=== PATIENT | female | born 1985 | race American Indian/Alaskan Native ===

== ENCOUNTER 2020-02-18 18:09 | Emergency (ER) | payer OTHER ==
[2020-02-18] MEDS ORDERED: HYDROmorphone 1 MG/1 ML INJ IV ONE ×2 (18:34→21:15)
[2020-02-18] MEDS ORDERED: SODIUM CHLORIDE 0.9% 500 ML 500 ML IV ONE (18:34)
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
[2020-02-18 19:21] LABS: Hematocrit 38.4 % (30.3-42.9); Hemoglobin 12.9 gm/dl (10.1-14.3); Mean Corpuscular HGB Conc 34 % (30-34); Mean Corpuscular Volume 89 fl (79-97); Platelet Count 435 K/mm3 (140-440); Red Cell Distribution Width 13.7 % (13.2-15.2)
[2020-02-18 19:36] LABS: Alanine Aminotransferase 16 units/L (7-56); BUN/Creatinine Ratio 22; Blood Urea Nitrogen 13 mg/dL (7-17); Calcium 9.3 mg/dL (8.4-10.2); Hemolysis Index 2; INR 1.11 (0.87-1.13)
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
[2020-02-18] MEDS ORDERED: methylPREDNISolone Sod Succinate 125 MG/2 ML INJ IV ONE (21:14)
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
[2020-02-18] MEDS ORDERED: ONDANSETRON 4 MG/2 ML INJ IV ONE (21:41)
[2020-02-18 22:03] LABS: Bilirubin,Urine NEG (Negative); Blood,Urine NEG (Negative); Color,Urine Straw (Yellow); Protein,Urine <15 mg/dL mg/dL (Negative); Urobilinogen,Urine < 2.0 mg/dL (<2.0)
[2020-02-18 22:06] LABS: RBC,Urine < 1.0 /HPF (0.0-6.0)
[2020-02-18 22:55] VITALS: BP 146/71
== END 2020-02-18 22:54 | disposition home or self-care (01) ==
LOC: ED 18:09
DX: S33.5XXA Sprain of ligaments of lumbar spine, initial encounter (principal); S20.219A Contusion of unspecified front wall of thorax, initial encounter; S30.1XXA Contusion of abdominal wall, initial encounter; V89.2XXA Person injured in unspecified motor-vehicle accident, traffic, initial encounter; Y93.89 Activity, other specified; Y92.410 Unspecified street and highway as the place of occurrence of the external cause; Y99.8 Other external cause status
CPT/HCPCS: 36415; 71045; 72170; 73552; 74177; 80053; 81001; 82550; 83690; 83735; 84484; 84702; 85027; 85610; 93005; 96374; 96375; 96376; 99285; J1170; J2405; J2930; J7040; Q9967